=== PATIENT | male | born 1980 | race Caucasian/White ===

== ENCOUNTER 2022-10-18 00:54 | Inpatient (IN) | payer OTHER ==
[2022-10-18 01:25] LABS: Absolute Lymphocytes (CBC) 0.8 K/uL (0.7-4.9); Hematocrit 42.3 % (39.6-49.0); Lymphocytes % 5.1 % (15.3-44.8); MCV 88.3 fL (80-100); MPV 8.1 fL (7.6-11.3); RBC Red Blood Cell Count 4.79 M/uL (4.33-5.43)
[2022-10-18] MEDS ORDERED: KETOROLAC 30 MG/ML INJ ONE ×3 (01:29→08:21)
[2022-10-18 01:38] LABS: Potassium 3.5 mEq/L (3.5-5.1)
[2022-10-18] MEDS ORDERED: Ringers Lactate 1,000 ML IV ONE ×2 (01:48→09:41)
[2022-10-18] MEDS ORDERED: VANCOMYCIN 1 GM/VIAL ONE (01:48)
[2022-10-18] MEDS ORDERED: NA CHLORIDE 0.9% 250 ML ONE (01:48)
[2022-10-18 01:51] LABS: Albumin 4.1 g/dL (3.4-5.0); Bilirubin Direct 0.1 mg/dL (0-0.2); Bilirubin Total 0.7 mg/dL (0.2-1.0); Protein, Total 7.3 g/dL (6.4-8.2)
[2022-10-18 01:53] LABS: Protime INR 1.09
--- NOTE | 2022-10-18 01:53 | EDPHYS ---
[facility] Name: Magno Mendoza Age: 42 yrs Sex: Male : 1980 Arrival Date: 10/18/2022 Time: 00:57 Bed 15 Private MD: ED Physician Link Richards HPI: 10/18 01:06 This 42 yrs old Male presents to ER via Unassigned with complaints of Hand pain/ ms3 swelling. 01:06 42-year-old male with no past medical history presents for left hand erythema and ms3 swelling that began yesterday evening. Patient states the swelling has become significantly worse since 7:30 PM. Patient rates his pain a 7/10 describes discomfort as throbbing. Patient states the pain became better after taking a hot shower. Patient denies inciting factors.. Historical: - Allergies: 01:07 No Known Allergies; kl - Home Meds: 01:07 None [Active]; kl - PMHx: 01:07 None; kl - PSHx: 01:07 None; kl - Immunization history:: Adult Immunizations not up to date. - Social history:: Smoking status: Patient denies any tobacco usage or history of. ROS: 01:06 Eyes: Negative for injury, pain, redness, and discharge, Neck: Negative for injury, ms3 pain, and swelling, Cardiovascular: Negative for chest pain, and palpitations. Respiratory: Negative for shortness of breath, cough, wheezing, and pleuritic chest pain, Abdomen/GI: Negative for abdominal pain, nausea, vomiting, diarrhea, and constipation, Neuro: Negative for headache, weakness, numbness, tingling. 01:06 Constitutional: Positive for chills. 01:06 MS/extremity: Positive for pain, swelling, of the left hand. 01:06 Skin: Positive for erythema, of the left hand. 01:06 All other systems are negative. Exam: 01:06 Constitutional: This is a well developed, well nourished patient who is awake, alert, ms3 and in no acute distress. Head/Face: Normocephalic, atraumatic. Neck: Trachea midline, no cervical lymphadenopathy. Supple, full range of motion without nuchal rigidity, or vertebral point tenderness. No Meningismus. Chest/axilla: Normal chest wall appearance and motion. Nontender with no deformity. Respiratory: Lungs have equal breath sounds bilaterally, clear to auscultation and percussion. No rales, rhonchi or wheezes noted. No increased work of breathing, no retractions or nasal flaring. Abdomen/GI: Soft, non-tender, with normal bowel sounds. No distension or tympany. No guarding or rebound. No evidence of tenderness throughout. 01:06 Cardiovascular: Rate: tachycardic, Rhythm: regular, Pulses: no pulse deficits are appreciated, Heart sounds: normal, normal S1and S2. 01:06 Musculoskeletal/extremity: Extremities: noted in the left hand: erythema, pain, swelling. 03:15 ECG was reviewed by the Attending Physician. ms3 Vital Signs: 01:04 BP 118 / 65; Pulse 123; Resp 17; Temp 99.9(O); Pulse Ox 98% on R/A; Weight 92.08 kg kl (R); Height 6 ft. 0 in. ; Pain 8/10; 01:47 BP 123 / 82; Pulse 112; Resp 18; Pulse Ox 97% on R/A; kl 02:55 BP 128 / 87; Pulse 108; kl 03:06 BP 129 / 82; Pulse 102; Resp 20 S; Temp 99.8(O); Pulse Ox 98% on R/A; ha1 01:04 Body Mass Index 27.53 (92.08 kg, 182.88 cm) kl 01:04 Pain Scale: Adult kl MDM: 01:06 Differential diagnosis: closed fracture, Cellulitis. ms3 01:11 Patient medically screened. ms3 01:53 Data reviewed: vital signs, nurses notes, lab test result(s), radiologic studies, and ms3 as a result, I will admit patient. Consideration of Admission/Observation Patient was admitted/placed on observation. I considered the following discharge prescriptions or medication management in the emergency department Medications were administered in the Emergency Department. See MAR. Historians other than the Patient: Spouse/Significant Other: . 03:17 Management of patient was discussed with the following: Hospitalist: Bear Akins NP ms3 accepts for Dr Melendez. Neurosurgery Spine Physician: Dr Gr- Patient to be NPO. Independent interpretation of the following test(s) in the Emergency Department X-Ray: My interpretation is Hand X-ray image reviewed- no fracture, swelling present. Counseling: I had a detailed discussion with the patient and/or guardian regarding: the historical points, exam findings, and any diagnostic results supporting the discharge/admit diagnosis, lab results, radiology results, the need for further work-up and treatment in the hospital. 10/18 01:05 Order name: CBC with Diff; Complete Time: 01:41 ms3 10/18 01:05 Order name: BMP; Complete Time: 01:41 ms3 10/18 01:33 Order name: Blood Culture Adult (2) ms3 10/18 01:33 Order name: Lactate w/ 2H reflex if indic.; Complete Time: 02:27 ms3 10/18 01:33 Order name: Protime (+inr); Complete Time: 02:09 ms3 10/18 01:33 Order name: Ptt, Activated; Complete Time: 02:09 ms3 10/18 01:33 Order name: LFT's; Complete Time: 01:51 ms3 10/18 01:57 Order name: SARS RAPID; Complete Time: 02:27 ms3 10/18 01:05 Order name: Hand Left 3 View XRAY ms3 10/18 01:33 Order name: EKG; Complete Time: 01:35 ms3 10/18 01:33 Order name: Accucheck; Complete Time: 03:10 ms3 10/18 01:33 Order name: Cardiac monitoring; Complete Time: 03:06 ms3 10/18 01:33 Order name: EKG - Nurse/Tech; Complete Time: 03:06 ms3 10/18 01:33 Order name: IV Saline Lock - Large Bore; Complete Time: 01:36 ms3 10/18 01:33 Order name: Labs collected and sent; Complete Time: 03:06 ms3 10/18 01:33 Order name: O2 Per Protocol; Complete Time: 03:06 ms3 10/18 01:33 Order name: O2 Sat Monitoring; Complete Time: 03:06 ms3 10/18 01:33 Order name: Vital Signs; Complete Time: 03:06 ms3 EC:15 Rate is 110 beats/min. Rhythm is regular. QRS [place] is Normal. NM interval is normal. ms3 QRS interval is normal. Clinical impression: Sinus tachycardia. Interpreted by me. Reviewed by me. Administered Medications: :28 Drug: Ketorolac IVP 10 mg 10 mg Route: IVP; Site: right forearm; kl 02:00 Drug: vancoMYCIN IVPB 1 grams Route: IVPB; Infused Over: 2 hrs; Site: right forearm; kl 03:32 Follow up: Response: No adverse reaction; IV Status: Completed infusion; IV Intake: ha1 250ml 02:00 Drug: Lactated Ringers Solution IV 1000 ml Route: IV; Rate: bolus; Site: right forearm; kl 03:38 Follow up: Response: No adverse reaction; IV Status: Completed infusion; IV Intake: ha1 1000ml 03:37 Drug: Ampicillin-Sulbactam Sodium IVPB 3 grams Route: IVPB; Infused Over: 30 mins; ha1 Site: right forearm; 04:00 Follow up: Response: No adverse reaction; IV Status: Completed infusion; Infusion ha1 continued; IV Intake: 100ml 03:39 Drug: Tetanus-Diphtheria Toxoid IM Adult 0.5 ml {Leak Inspector: [employer] ([place] [employer]). ha1 Exp: 06/20/2023. Lot #: [id number]. } Route: IM; Site: right deltoid; 04:00 Follow up: Response: No adverse reaction ha1 Disposition Summary: 10/18/22 02:33 Hospitalization Ordered Hospitalization Status: Inpatient Admission ms3 Provider: Karsten Melendez ms3 Condition: Stable(10/18/22 02:33) ms3 Problem: new(10/18/22 02:33) ms3 Symptoms: are unchanged(10/18/22 02:33) ms3 Bed/Room Type: Standard ms3 Location: [facility] ER HOLD(10/18/22 03:05) Room Assignment: ERHOLD-(10/18/22 03:05) cg Diagnosis - sepsis without end organ dysfunction ms3 - Left hand Cellulitis ms3 Forms: - Medication Reconciliation Form ms3 - SBAR form ms3 Signatures: Dispatcher [employer] Dahiana Elizalde RN RN Bear Muller, AMMONIUM HYDROXIDE OPERATORCasimiro SALDANAP-Hilda Brar RN RN Link Sosa DO DO ms3 Mary Dolan RN RN ha1 Corrections: (The following items were deleted from the chart) 02:32 01:53 ms3 ms3 02:32 01:53 [facility] ms3 ms3 02:32 01:53 Higher level of care ms3 ms3 02:32 01:53 Stable ms3 ms3 02:32 01:53 new ms3 ms3 02:32 01:53 are unchanged ms3 ms3 02:32 01:53 Cellulitis Left hand ms3 ms3 02:32 01:53 Tachycardia, unspecified ms3 ms3 03:05 02:33 Telemetry/MedSurg (Inpatient) ms3 cg 03:05 02:33 ms3 cg 03:19 01:53 Data reviewed: vital signs, nurses notes, lab test result(s), radiologic studies, ms3 and as a result, I will transfer, ms3 03:19 01:53 Consideration of Admission/Observation [facility] ms3
--- NOTE | 2022-10-18 01:53 | ER ---
Nurse's Notes [facility] Name: Magno Mendoza Age: 42 yrs Sex: Male : 1980 Arrival Date: 10/18/2022 Time: 00:57 Bed 15 Private MD: Diagnosis: sepsis without end organ dysfunction;Left hand Cellulitis Presentation: 10/18 01:04 Chief complaint: Patient states: left hand swelling redness began yesterday swelling in kl pain worse. Coronavirus screen: Vaccine status: Patient reports being unvaccinated. Ebola Screen: Patient negative for fever greater than or equal to 101.5 degrees Fahrenheit, and additional compatible Ebola Virus Disease symptoms. Initial Sepsis Screen: Does the patient meet any 2 criteria? HR > 90 bpm. Does the patient have a suspected source of infection? Yes: Skin breakdown/wound. Risk Assessment: Do you want to hurt yourself or someone else? Patient reports no desire to harm self or others. 01:04 Method Of Arrival: Ambulatory 01:04 Acuity: MOHINDER 3 kl 04:00 Onset of symptoms was October 18, 2022. ha1 Triage Assessment: 01:07 General: Appears uncomfortable, well groomed, well developed, Behavior is calm, kl cooperative. Pain: Complains of pain in left hand. Musculoskeletal: Capillary refill < 3 seconds, Range of motion: limited in left hand Swelling present in left hand. Injury Description: denies injury. Historical: - Allergies: 01:07 No Known Allergies; kl - Home Meds: 01:07 None [Active]; kl - PMHx: 01:07 None; kl - PSHx: 01:07 None; kl - Immunization history:: Adult Immunizations not up to date. - Social history:: Smoking status: Patient denies any tobacco usage or history of. Screenin:16 [facility] ED Fall Risk Assessment (Adult) History of falling in the last 3 months, kl including since admission No falls in past 3 months (0 pts). Abuse screen: Denies threats or abuse. Nutritional screening: No deficits noted. Tuberculosis screening: No symptoms or risk factors identified. Assessment: 01:16 Reassessment: Patient appears in no apparent distress at this time. Patient is alert, kl oriented x 3, equal unlabored respirations, skin warm/dry/pink. 03:30 Reassessment: received report from KEM Hicks. see assessment on [facility]. ha1 Vital Signs: 01:04 BP 118 / 65; Pulse 123; Resp 17; Temp 99.9(O); Pulse Ox 98% on R/A; Weight 92.08 kg kl (R); Height 6 ft. 0 in. ; Pain 8/10; 01:47 BP 123 / 82; Pulse 112; Resp 18; Pulse Ox 97% on R/A; kl 02:55 BP 128 / 87; Pulse 108; kl 03:06 BP 129 / 82; Pulse 102; Resp 20 S; Temp 99.8(O); Pulse Ox 98% on R/A; ha1 01:04 Body Mass Index 27.53 (92.08 kg, 182.88 cm) kl 01:04 Pain Scale: Adult kl ED Course: 00:57 Patient arrived in ED. jj6 00:59 Link Richards DO is Attending Physician. ms3 01:07 Triage completed. kl 01:16 Inserted saline lock: 20 gauge in right forearm, using aseptic technique. Blood kl collected. 01:22 BMP Sent. kl 01:22 CBC with Diff Sent. kl 01:32 Hand Left 3 View XRAY In Process Unspecified. EDMS 02:33 Karsten Melendez MD is Hospitalizing Provider. ms3 02:52 Mary Dolan RN is Primary Nurse. ha1 03:30 Arm band placed on right wrist. ha1 03:30 Patient has correct armband on for positive identification. Bed in low position. Call ha1 light in reach. Side rails up X 1. Adult w/ patient. 04:00 No provider procedures requiring assistance completed. Patient admitted, IV remains in ha1 place. Administered Medications: 01:28 Drug: Ketorolac IVP 10 mg 10 mg Route: IVP; Site: right forearm; kl 02:00 Drug: vancoMYCIN IVPB 1 grams Route: IVPB; Infused Over: 2 hrs; Site: right forearm; kl 03:32 Follow up: Response: No adverse reaction; IV Status: Completed infusion; IV Intake: ha1 250ml 02:00 Drug: Lactated Ringers Solution IV 1000 ml Route: IV; Rate: bolus; Site: right forearm; kl 03:38 Follow up: Response: No adverse reaction; IV Status: Completed infusion; IV Intake: ha1 1000ml 03:37 Drug: Ampicillin-Sulbactam Sodium IVPB 3 grams Route: IVPB; Infused Over: 30 mins; ha1 Site: right forearm; 04:00 Follow up: Response: No adverse reaction; IV Status: Completed infusion; Infusion ha1 continued; IV Intake: 100ml 03:39 Drug: Tetanus-Diphtheria Toxoid IM Adult 0.5 ml {Chainstitch Zipper Setter: [employer] ha1 Exp: 06/20/2023. Lot #: [id number]. } Route: IM; Site: right deltoid; 04:00 Follow up: Response: No adverse reaction ha1 Medication: 04:00 Vaccine Information Statement (VIS) provided today. Questions and/or concerns ha1 addressed. VIS edition date: October 18, 2022. Intake: 03:32 IV: 250ml; Total: 250ml. ha1 03:38 IV: 1000ml; Total: 1250ml. ha1 04:00 IV: 100ml; Total: 1350ml. ha1 Outcome: 01:53 ER care complete, transfer ordered by MD. ms3 02:33 Decision to Hospitalize by Provider. ms3 04:00 Admitted to ER Hold. Please see [facility] for further documentation. ha1 04:00 Condition: stable 04:00 Discharge instructions given to patient, family, Instructed on the need for admit. 08:07 Patient left the ED. kc6 Signatures: Dispatcher [employer] Dahiana Elizalde RN RN kl Sims, Marcus, DO DO ms3 Samina Gomez jj6 Mary Dolan RN RN ha1 Campbell, Kaitlyn, RN RN kc6 Corrections: (The following items were deleted from the chart) 03:38 03:37 Response: No adverse reaction; IV Status: Infusion continued; IV Intake: 300ml ha1ha1
[2022-10-18 02:23] LABS: SARS-CoV-2 Antigen Rapid Res Negative (Negative)
[2022-10-18] MEDS ORDERED: NA CHLORIDE 0.9% 100 ML ONE (03:21)
[2022-10-18] MEDS ORDERED: AMPICILLIN/SULBACTAM 3GM/VIAL ONE (03:21)
[2022-10-18] MEDS ORDERED: TDAP (DIPHTH,PERTUSS(ACELL),TET VAC) 0.5 ML VIAL IMVAC ONE (03:22)
--- NOTE | 2022-10-18 03:28 | P.HP ---
Certification for Inpatient Patient admitted to: Inpatient With expected LOS: >2 Midnights Patient will require the following post-hospital care: None Practitioner: I am a practitioner with admitting privileges, knowledge of patient current condition, hospital course, and medical plan of care. Services: Services provided to patient in accordance with Admission requirements found in Title 42 Section 412.3 of the Code of Federal Regulations <Bear Akins - Last Filed: 10/18/22 03:26> Patient History Date of Service: 10/18/22 Reason for admission: Hand cellulitis History of Present Illness: 42-year-old otherwise healthy male presents to the emergency department for left hand erythema, swelling. 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 On 10/17/2022 he [place] and while he was there noticed significant increase in the swelling and erythema as well as pain, for that reason he presented to the emergency department. While he was at the [place] he denies any interaction with any type of animals, he is unaware of any kind of bites from animals or insects that he can recall from the past few days. His labs were significant for leukocytosis with a white blood cell count of 15.3 he was initially tachycardic meeting SIRS criteria his lactic acid was 1.6 ED reached out to hand surgery who recommended admission to hospital service, will see him in the morning. Given tetanus, ABX in ED. - Past Medical/Surgical History -: None -: None Psychosocial/ Personal History: Patient is at home with his , is employed - Family History Family History: Reviewed- Non-Contributory - Social History Smoking Status: Never smoker Alcohol use: No CD- Drugs: No Caffeine use: Yes Place of Residence: Home <Bear Akins - Last Filed: 10/18/22 03:26> Date of Service: 10/18/22 <Karsten Melendez - Last Filed: 10/18/22 13:57> Review of Systems 10-point ROS is otherwise unremarkable Musculoskeletal: Hand Pain <Bear Akins - Last Filed: 10/18/22 03:26> Physical Examination - Physical Exam General: Alert, In no apparent distress, Oriented x3 HEENT: Atraumatic, PERRLA, Mucous membr. moist/pink, EOMI, Sclerae nonicteric Neck: Supple, 2+ carotid pulse no bruit, No LAD, Without JVD or thyroid abnormality Respiratory: Clear to auscultation bilaterally, Normal air movement Cardiovascular: Regular rate/rhythm, Normal S1 S2 Capillary refill: <2 Seconds Gastrointestinal: Normal bowel sounds, No tenderness Musculoskeletal: No tenderness Integumentary: Warmth (Left hand erythematous, swollen, CMS intact) Neurological: Normal speech, Normal strength at 5/5 x4 extr, Normal tone, Normal affect - Studies Laboratory Data (last 24 hrs) 10/18/22 01:15: Total Bilirubin 0.7, AST 15, ALT 35, Alkaline Phosphatase 76 10/18/22 01:15: Sodium 137, Potassium 3.5, BUN 16, Creatinine 0.94, Glucose 128 H 10/18/22 01:15: WBC 15.30 H, Hgb 14.6, Hct 42.3, Plt Count 149 L 10/18/22 00:55: PT 12.0, INR 1.09, APTT 31.1 <Bear Akins - Last Filed: 10/18/22 03:26> - Studies Laboratory Data (last 24 hrs) 10/18/22 01:15: Total Bilirubin 0.7, AST 15, ALT 35, Alkaline Phosphatase 76 10/18/22 01:15: Sodium 137, Potassium 3.5, BUN 16, Creatinine 0.94, Glucose 128 H 10/18/22 01:15: WBC 15.30 H, Hgb 14.6, Hct 42.3, Plt Count 149 L 10/18/22 00:55: PT 12.0, INR 1.09, APTT 31.1 <Karsten Melendez - Last Filed: 10/18/22 13:57> Assessment and Plan - Plan Assessment: Sepsis secondary to left hand cellulitis Plan: Sepsis secondary to left hand cellulitis Given tetanus in ED, continue IV antibiotics, blood cultures obtained in ED. Hand surgery consulted, will see today. X-ray negative. DVT PPX: SCD Code status: Full Discharge Plan: Home Plan to discharge in: 48 Hours - Advance Directives Does patient have a Living Will: No Does patient have a Durable POA for Healthcare: No - Code Status/Comfort Care Code Status Assessed: Yes (Full code) Critical Care: No Time Spent Managing Pts Care (In Minutes): 55 <Bear Akins - Last Filed: 10/18/22 03:26> Physician Review: Patient Assessed, Agree with Above Assessment and Plan <Karsten Melendez - Last Filed: 10/18/22 13:57>
[2022-10-18] MEDS ORDERED: MORPHINE 2 MG/ML SYR IV PRN (03:44)
[2022-10-18] MEDS: NA CHLORIDE 0.9% 1,000 ML IV SCH ×4 (03:50→22:52)
[2022-10-18] MEDS ORDERED: ACETAMINOPHEN 500 MG TAB PO ONE (03:59)
[2022-10-18 04:28] VITALS: BMI 27.5
[2022-10-18] MEDS ORDERED: KETOROLAC 30 MG/ML INJ IV ONE (05:08)
[2022-10-18] MEDS ORDERED: DOXYCYCLINE 100 MG in NA CHLORIDE 0.9% 100 ML IVPB SCH ×2 (07:00→09:00)
[2022-10-18] MEDS ORDERED: propofoL 200 MG/20 ML VIAL IV ONE (08:20)
[2022-10-18] MEDS ORDERED: MIDAZOLAM HCL 2 MG/2 ML INJ ONE (08:20)
[2022-10-18] MEDS ORDERED: dexAMETHasone 4 MG/ML VIAL ONE (08:20)
[2022-10-18] MEDS ORDERED: ONDANSETRON 4 MG/2 ML VIAL ONE (08:20)
[2022-10-18] MEDS ORDERED: FENTANYL CITR 100 MCG/2 ML ONE (08:20)
[2022-10-18] MEDS ORDERED: LIDOCAINE 1% MPF 5 ML VIAL ONE (08:20)
[2022-10-18 08:51] LABS: Specific Gravity 1.024 (1.005-1.030); Urine Bacteria None Seen /HPF (<20); Urine Bilirubin NEGATIVE (Negative); Urine Blood Negative (Negative); Urine Clarity Clear (Clear); Urine Color Light-Yellow (Yellow); Urine Glucose TRACE (Negative); Urine Mucus Slight /HPF (None Seen); Urine Protein TRACE (Negative); Urine RBC <5 /HPF (None Seen); Urine Urobilinogen Normal (Normal)
[2022-10-18] MEDS ORDERED: INFLUENZA VACCINE (for 6+ mo) 0.5 ML DOSE IMVAC ONE (09:00)
[2022-10-18] MEDS ORDERED: AMPICILLIN/SULBACT 3 GM in NA CHLORIDE 0.9% 100 ML IVPB SCH (09:00)
[2022-10-18] MEDS ORDERED: SILVER SULFADIAZINE 1% 25 GM TOP ONE (09:05)
[2022-10-18] MEDS: HYDROMORPHONE HCL 1 MG/ML INJ ONE ×2 (09:36→09:43)
[2022-10-18] MEDS: AMPICILLIN/SULBACT 3 GM in NA CHLORIDE 0.9% 100 ML IVPB SCH ×2 (11:56→16:47)
--- NOTE | 2022-10-18 13:01 | OP ---
Surgeon: Agusto Sy MD Hydroelectric Mechanic: Operating staff. Preoperative Diagnosis: Infected left hand. Postoperative Diagnosis: Infected left hand. Operation: Debridement of skin and subcu tissue. Anesthesia: General. Description Of Procedure: After satisfactory induction of general anesthesia, left arm was prepped w ith Betadine scrub, Betadine paint. Dry sterile drapes applied in usual manner. Arm was elevated. Tourniquet was inflated to 250 mmHg. Hand was placed on a Roto Lock table. Elliptical incision was made over web space of the index, middle, and then extended proximally and distally. Fluid was prese nt down to the level of the excess tendons. The cultures were taken. The wound was irrigated with 3 L of dilute Betadine solution. Tourniquet released. Electrocautery used for hemostasis. Wound was packed with quarter-inch Nu Gauze with Silvadene Cream, Kerlix applied. The patient tolerated the p rocedure well and returned to recovery. MISHA/LEXI Voice ID: [id number] Report ID: [id number]
--- NOTE | 2022-10-18 13:16 | HP ---
Date of Admission: 10/18/2022 History Of Present Illness: A 42-year-old white male, right-hand dominant, who has a swelling of his left dorsal hand. He has a [place] over the web space between the index and middle approximately 1 mm in diameter. He has surrounding erythema. He has pain on motion. He was presented to the emergency room, x-ray taken negative. He has an elevated white cell count of 15,000. Past Medical History: No previous surgeries or medical problems. Social History: He does not smoke. Drinks alcohol occasionally. Physical Examination: Vital Signs: He is 6 feet 200 pounds. SKIN: He has a red area proximal 1 mm over the web space with surrounding erythema extending to dors um of hand, pain and flexion. X-rays were negative. Assessment: Infection of the left hand. Plan: Incision and drainage. ARTIS Voice ID: [id number]
[2022-10-18] MEDS ORDERED: SILVER SULFADIAZINE 1% 25 GM TOP SCH (21:00)
[2022-10-18] MEDS: DOXYCYCLINE 100 MG in NA CHLORIDE 0.9% 100 ML IVPB SCH (21:04)
[2022-10-18] MEDS: CODEINE 30MG/APAP 300MG TAB PO PRN (21:13)
--- NOTE | 2022-10-18 21:17 | RAD REPORT ---
EXAM DESCRIPTION: RAD - Hand Left 3 View - 10/18/2022 1:30 am CLINICAL HISTORY: Pain. TECHNIQUE: Left hand 3 views. COMPARISON: None. FINDINGS: There is no fracture or dislocation. No bony or articular abnormalities are noted. The soft tissues are unremarkable. IMPRESSION: 1. Normal study. Electronically signed by: Jose Farley MD 10/18/2022 1:39 AM CDT Due to temporary technical issues with the PACS/Fluency reporting system, reports are being signed by the in house radiologists without review as a courtesy to insure prompt reporting. The interpreting radiologist is fully responsible for the content of the report.
[2022-10-19] MEDS: AMPICILLIN/SULBACT 3 GM in NA CHLORIDE 0.9% 100 ML IVPB SCH ×4 (00:18→17:49)
[2022-10-19 04:48] LABS: Absolute Lymphocytes (CBC) 1.4 K/uL (0.7-4.9); Hematocrit 35.9 % (39.6-49.0); Lymphocytes % 13.7 % (15.3-44.8); MPV 8.1 fL (7.6-11.3); RBC Red Blood Cell Count 4.08 M/uL (4.33-5.43)
[2022-10-19] MEDS: CODEINE 30MG/APAP 300MG TAB PO PRN ×3 (04:55→20:56)
[2022-10-19 05:04] LABS: Potassium 3.8 mEq/L (3.5-5.1)
[2022-10-19] MEDS: NA CHLORIDE 0.9% 1,000 ML IV SCH ×2 (09:48→20:48)
[2022-10-19] MEDS: DOXYCYCLINE 100 MG in NA CHLORIDE 0.9% 100 ML IVPB SCH ×2 (09:49→20:40)
[2022-10-19] MEDS: SILVER SULFADIAZINE 1% 25 GM TOP SCH ×2 (11:39→21:00)
--- NOTE | 2022-10-19 13:46 | P.PN ---
Subjective Date of Service: 10/19/22 Chief Complaint: Hand cellulitis POD # 1 debridement of skin and subcutaneous tissue of left hand. He is doing well this morning and his pain is well controlled. His fever curve has improved. He denies any chest pain, shortness of breath, or palpitations. Review of Systems 10-point ROS is otherwise unremarkable Musculoskeletal: Hand Pain (left) Physical Examination - Vital Signs Temperature: 97.5 F Blood Pressure: 149/84 Pulse: 75 Respirations: 16 Pulse Ox (%): 97 - Physical Exam General: Alert, In no apparent distress, Oriented x3 HEENT: Atraumatic, Mucous membr. moist/pink, Sclerae nonicteric Neck: JVD not distended Respiratory: Clear to auscultation bilaterally, Normal air movement Cardiovascular: Regular rate/rhythm, Normal S1 S2, No gallops, No rubs, No murmurs Gastrointestinal: Normal bowel sounds, Soft and benign, Non-distended, No tenderness Musculoskeletal: Other (left hand covered in surgical dressing) Integumentary: No rashes Neurological: Normal speech, Normal affect Assessment And Plan - Plan # Sepsis likely secondary to Left Hand Cellulitis He met sepsis criteria based on temperature > 100.9 F, HR > 90 bpm, and WBC > 12,000, and the suspected source is cellulitis. - S/P Tdap in ED - Hand Surgery consulted and spoke with Dr. Sy - recommendations appreciated - S/P debridement of skin and subcutaneous tissue (10/18/2022) - Plan to return to the OR on 10/21/2022 - Sepsis order set was initiated - Initial Lactate was 1.6 - Blood cultures drawn before antibiotics were given - Broad spectrum antibiotics started: Ampicillin-Sulbactam + Doxycycline (to cover Coxiella Burnetti given cattle exposure) - In regards to fluids: - 30 mL/kg of IV fluids was not administered given SBP > 90, MAP > 65, lactic acid < 4 - PRN pain control Karsten Melendez M.D.
[2022-10-20] MEDS: AMPICILLIN/SULBACT 3 GM in NA CHLORIDE 0.9% 100 ML IVPB SCH ×6 (05:49→23:55)
[2022-10-20] MEDS: CODEINE 30MG/APAP 300MG TAB PO PRN ×3 (05:49→20:55)
[2022-10-20] MEDS: SILVER SULFADIAZINE 1% 25 GM TOP SCH ×2 (09:00→21:52)
[2022-10-20] MEDS: DOXYCYCLINE 100 MG in NA CHLORIDE 0.9% 100 ML IVPB SCH ×2 (09:03→20:55)
[2022-10-20] MEDS: NA CHLORIDE 0.9% 1,000 ML IV SCH ×2 (09:03→17:28)
--- NOTE | 2022-10-20 13:35 | DS ---
Patient has full range of motion. Hand feels much better. Surgery tomorrow. N.p.o. at midnight, de phani. MISHA/LEXI Voice ID: [id number] Report ID: [id number]
--- NOTE | 2022-10-20 17:18 | P.PN ---
Subjective Date of Service: 10/20/22 Subjective: No new changes, No C/O voiced, Improving Patient is scheduled for surgery to close the wound in the morning. Anticipate discharge home afterwards. Review of Systems 10-point ROS is otherwise unremarkable Physical Examination - Vital Signs Temperature: 97.1 F Blood Pressure: 138/86 Pulse: 70 Respirations: 16 Pulse Ox (%): 95 - Physical Exam General: Alert, In no apparent distress, Oriented x3 HEENT: Atraumatic, PERRLA, EOMI Neck: Supple, JVD not distended Respiratory: Clear to auscultation bilaterally, Normal air movement Cardiovascular: Regular rate/rhythm, Normal S1 S2 Gastrointestinal: Normal bowel sounds, No tenderness Musculoskeletal: No tenderness Integumentary: No rashes Neurological: Normal speech, Normal tone, Normal affect Lymphatics: No axilla or inguinal lymphadenopathy - Studies Medications List Reviewed: Yes Assessment & Plan - Problems (Diagnosis) (1) Cellulitis of left hand Current Visit: Yes Status: Acute - Plan PLAN: 1. Continue with IV antibiotic 2. Continue with local wound care 3. Appreciate hand surgery input 4. Gentle IV hydration 5. Monitor CBC 6. Strict blood sugar monitoring 7. Pain control 8. GI and DVT prophylaxis - Advance Directives Does patient have a Living Will: No Does patient have a Durable POA for Healthcare: No Physician Review: Patient Assessed, Agree with Above Assessment and Plan
--- NOTE | 2022-10-20 17:40 | EKG ---
Test Date: 2022-10-18 Test Time: 02:01:04 Wrestling Coach: MEETA MEASUREMENT RESULTS: Intervals: Rate: 110 NJ: 170 QRSD: 100 QT: 330 QTc: 446 [place]: P: 50 NJ: 170 QRS: 44 T: 19 INTERPRETIVE STATEMENTS: Sinus tachycardia Otherwise normal ECG No previous ECG available for comparison Electronically Signed On 10-20-22 17:36:29 CDT by Hany Gutierrez
[2022-10-21] MEDS: CODEINE 30MG/APAP 300MG TAB PO PRN (00:35)
[2022-10-21] MEDS ORDERED: AMPICILLIN/SULBACTAM 3GM/VIAL ONE (04:47)
[2022-10-21] MEDS ORDERED: NA CHLORIDE 0.9% 100 ML ONE (04:48)
[2022-10-21] MEDS: NA CHLORIDE 0.9% 1,000 ML IV SCH ×2 (05:12→11:44)
[2022-10-21] MEDS: AMPICILLIN/SULBACT 3 GM in NA CHLORIDE 0.9% 100 ML IVPB SCH ×2 (05:12→11:08)
[2022-10-21] MEDS ORDERED: MIDAZOLAM HCL 2 MG/2 ML INJ ONE ×2 (07:55→09:30)
[2022-10-21] MEDS ORDERED: FENTANYL CITR 100 MCG/2 ML ONE ×2 (07:55→09:29)
[2022-10-21] MEDS ORDERED: propofoL 200 MG/20 ML VIAL IV ONE ×2 (07:55→09:29)
[2022-10-21] MEDS ORDERED: LIDOCAINE 2% MPF 5 ML VIAL ONE ×3 (07:56→09:53)
[2022-10-21] MEDS ORDERED: ONDANSETRON 4 MG/2 ML VIAL ONE ×2 (07:57→09:30)
[2022-10-21] MEDS: SILVER SULFADIAZINE 1% 25 GM TOP SCH (09:00)
[2022-10-21] MEDS: DOXYCYCLINE 100 MG in NA CHLORIDE 0.9% 100 ML IVPB SCH (09:00)
[2022-10-21] MEDS ORDERED: Ringers Lactate 1,000 ML IV ONE (09:06)
[2022-10-21] MEDS ORDERED: dexAMETHasone 10 MG/ML VIAL ONE (09:30)
[2022-10-21] MEDS ORDERED: KETOROLAC 30 MG/ML INJ ONE (09:32)
[2022-10-21 10:56] VITALS: O2SAT 94
[2022-10-21 12:29] VITALS: BP 145/91; TEMP 97.3
--- NOTE | 2022-10-21 15:44 | OP ---
Surgeon: Agusto Sy MD Preoperative Diagnosis: Open wound, left dorsal hand. Postoperative Diagnosis: Open wound, left dorsal hand. Procedure Performed: Debridement of skin, subcutaneous tissue, flap closure. Anesthesia: General. Description Of Procedure: After satisfactory induction of general anesthesia, left hand was prepped with Betadine scrub, Betadine paint. Dry sterile drapes were applied in usual manner. The arm was e levated and Esmarch tourniquet was inflated to 250 mmHg. Hand placed on the roll lock table. Skin a nd subcutaneous tissue were debrided with scalpel, forceps, tenotomy scissors and curette. The wound was jet lavaged, irrigated with 3 L of dilute Betadine solution. The flaps were undermined and adva nced, closed with 4-0 Prolene vertical mattresses. Dressed with Xeroform, 2-inch Peggy, Kerlix. The patient tolerated the procedure well and returned to recovery room. MISHA/LEXI Voice ID: [id number] Report ID: [id number]
== END 2022-10-21 14:16 | disposition home or self-care (01) | DRG 854 ==
LOC: ER 00:54 → ERHOLD 02:54 → 4TH 09:33 → 2ND 16:07
PROVIDERS: ADMIT Internal Medicine; ATTEND Hospitalist
PROC: 0LD80ZZ Extraction of Left Hand Tendon, Open Approach (ICD-10-PCS; principal; 2022-10-18 08:30)
DX: A41.9 Sepsis, unspecified organism (principal); L03.114 Cellulitis of left upper limb; Z20.822 Contact with and (suspected) exposure to COVID-19
CPT/HCPCS: 36415; 80048; 80076; 81001; 83605; 85025; 85610; 85730; 87040; 87070; 87075; 87205; 87811; 88304; 90471; 93005; 96365; 96367; 96375; 99285; J0295; J1100; J1170; J2001; J2250; J2270; J2405; J2704; J3010; J7030; J7050; J7120